=== PATIENT | female | born 1965 | race Caucasian/White ===

== ENCOUNTER 2017-03-08 10:49 | Emergency (ER) | payer SELFPAY ==
[~2017-03-08 10:49] MED LIST: IBUP-232 PO; PROVENTIL HFA INH; VENTAER INH
[2017-03-08 10:51] VITALS: BP 163/78; PULSE 80; RESP 16; TEMP 98.6; O2SAT 96
--- NOTE | 2017-03-08 11:02 | PD ---
HPI . right buttocks abscess x 5 days Chief Complaint: Skin Problem Time Seen by Provider: 10:56 Travel History International Travel<30 days: No Contact w/Intl Traveler<30days: No Traveled to known affect area: No History of Present Illness HPI 51- yr old female here with c/o right buttocks swelling that started about one week ago. She reports that the swelling is getting worse, and feels as if it is pulsating. She reports difficulty with urination due to the pain of the swelling on her buttocks. She reports her pain is a 9/10. The patient is requesting that the swelling be incised and drained. She tells me her significant other has similar issues. She is requesting cheap of free meds because she is "poor." She denies any fever, chills or other symptoms. She has tried popping this herself at home and also tried warm baths. PFSH Past Medical History Asthma: Yes Cancer: Yes (cervical) Diminished Hearing: No Menopausal: Yes Past Surgical History Gynecologic Surgery: Yes (hyster) Hysterectomy: Yes Social History Alcohol Use: Yes (beer and wine on weekends) Tobacco Use: Yes (1/2 ppd) Substance Use: No Allergies-Medications (Allergen,Severity, Reaction): Coded Allergies: Iodinated Contrast- Oral and IV Dye (Unverified Allergy, Intermediate, Hives, 03/08/17) Reported Meds & Prescriptions Reported Meds & Active Scripts Active Bactrim DS (Sulfamethoxazole-Trimethoprim) 800-160 Mg Tab 1 Tab PO BID Review of Systems General / Constitutional: No: Fever, Chills, Weight Gain, Weight Loss, Other Eyes: No: Diploplia, Blurred Vision, Photophobia, Drainage, Redness, Foreign Body Sensation, Pain, Tearing, Blind Spots, Visual changes, Blindness, Other HENT: No: Headaches, Vertigo, Lightheadedness, Sore Throat, Rhinitis, Rhinorrhea, Congestion, Nosebleed, Neck Stiffness, Neck Pain, Masses, Gingival Bleeding, Dental Difficulties, Ear Discharge, Earache, Other Cardiovascular: No: Chest Pain or Discomfort, Palpitations, Irregular Rhythm, Tachycardia, Diaphoresis, Syncope, Dyspnea on exertion, Varicosities, Edema, Cyanosis, Varicosities, Phlebitis, Claudication, Other Respiratory: No: Cough, Shortness of Breath, Wheezing, Sneezing, Orthopnea, Hemoptysis, Stridor, Night Sweats, Pleuritic Pain, Other Gastrointestinal: No: Nausea, Vomiting, Diarrhea, Abdominal Pain, Hematemesis, Hematochezia, Constipation, Changes in Bowel Habits, Indigestion, Dysphagia, Loss of Appetite, Other Genitourinary: No: Urgency, Frequency, Dysuria, Nocturia, Hematuria, Decreased Urinary Output, Oliguria, Hesitancy, Dribbling, Incontinence, Pelvic Pain, Flank Pain, Dyspareunia, Discharge, Dysmenorrhea, Menorrhagia, Metorrhagia, Vaginal Bleeding, Other Musculoskeletal: No: Myalgias, Arthralgias, Limited ROM, Weakness, Cramping, Edema, Pain, Atrophy, Other Skin: Positive Other (Abscess to right buttock ), No Rash, No Itching, No Dryness, No Lumps, No Hives, No Change in Pigmentation, No Change in nails, No Alopecia, No Lesions, No Breast Lumps, No Breast Tenderness, No Breast Swelling Neurologic: No: Weakness, Dizziness, Syncope, Focal Abnormalities, Coordination Problem, Tremor, Ataxia, Headache, Change in Mentation, Slurred Speech, Paresthesia, Incontinence, Seizures, Sensory Disturbance, Other Psychiatric: No: Anxiety, Depression, Suicidal Ideations, Disorder of Thought, Mood Disorder, Substance Abuse, Homicidal Ideation, Other Endocrine: No: Heat Intolerance, Cold Intolerance, Polyuria, Polydipsia, Other Hematologic/Lymphatic: No: Easy Bruising, Lymph Node Enlargement, Other Physical Exam Narrative GENERAL: AAO x 3. NAD. SKIN: 5 cm abscess noted on right buttock, firm, but some fluctuance in the center with drainage already present. +++ surrounding erythema with zone of inflammation extending about 2 cm. Warm and dry. HEAD: Atraumatic. Normocephalic. EYES: Pupils equal and round. No scleral icterus. No injection or drainage. ENT: No nasal bleeding or discharge. Mucous membranes pink and moist. NECK: Trachea midline. No JVD. CARDIOVASCULAR: Regular rate and rhythm. RESPIRATORY: No accessory muscle use. Clear to auscultation. Breath sounds equal bilaterally. No wheezing, rales, or rhonchi. GASTROINTESTINAL: Abdomen soft, non-tender, nondistended. MUSCULOSKELETAL: Extremities without clubbing, cyanosis, or edema. No obvious deformities. NEUROLOGICAL: Awake and alert. No obvious cranial nerve deficits. Motor grossly within normal limits. Five out of 5 muscle strength in the arms and legs. Normal speech. PSYCHIATRIC: Appropriate mood and affect; insight and judgment normal. Data Data Last Documented VS Vital Signs Date Time Temp Pulse Resp B/P (MAP) Pulse Ox O2 Delivery O2 Flow Rate FiO2 03/08/17 10:51 98.6 80 16 163/78 (106) 96 Orders Orders Wound Culture And Gram Stain (03/08/17 11:07) Lidocaine 1% Inj (50 Ml) (Xylocaine 1% I (03/08/17 11:15) MDM Medical Decision Making Medical Screen Exam Complete: Yes Emergency Medical Condition: Yes Medical Record Reviewed: Yes Differential Diagnosis Abscess versus Cellulitis Narrative Course 51 yr old female here with an abscess to her right buttocks. She has given verbal consent to I&D. Procedure performed and patient tolerated without incident. She was given Rx for bactrim and told to follow up in the ED In 48 hours for wound recheck. We discussed the signs of worsening infection and when to return to the ED. Patient verbalized understanding of instructions, questions were answered, and thanked me for their care. I advised them if their condition worsens, please return to the nearest emergency room for further care. Procedures Procedure Narrative Patient consented to having incision and drainage performed on an abscess on her right buttock. The abscess was first cleaned with iodine. After the abscess was anesthetized using 10 mL of 1% Lidocaine. The abscess was then incised 1 cm and drained and a culture was obtained. Loculations were broken up. The wound was then cleaned again with iodine and packed. Abdominal pad was placed over the abscess and taped. Patient was instructed on proper wound care. Diagnosis Primary Impression: Abscess of buttock, right Patient Instructions: General Instructions Additional Instructions: Rest, hydrate. Do not change the dressing unless it becomes wet or soiled until wound recheck in 48 hours. You may bathe normally. Do not submerge the wound. Take the antibiotics as they are prescribed, even if your symptoms resolve during the course of treatment. Utilize [id number] pain medications, as described on the label, as needed. Return to the ED in 48 hours for packing removal and wound recheck. Follow-up with your primary care provider in next week. Return to the ED for any urgent or emergent medical condition. Please return to emergency department if your symptoms return or worsen. Follow up with your primary care provider. Take medications as prescribed. [place] for worsening signs of infection which include fever, increased redness , increased warmth, purulent drainage, increased swelling or streaking. If any of these develop, please go to the nearest emergency room. Med/Other Pt SpecificInfo: Prescription(s) given Scripts Sulfamethoxazole-Trimethoprim (Bactrim DS) 800-160 Mg Tab 1 TAB PO BID for Infection, #20 TAB 0 Refills Prov: Kashmir Blanton MD 03/08/17 Disposition: 01 DISCHARGE HOME Condition: Stable Cyndy Damico Mar 08, 2017 11:02
[2017-03-08] MEDS ORDERED: LIDOCAINE HCL 1% 50 ML VIAL INFIL ONE (11:15)
[2017-03-08] MEDS ORDERED: BACT800T5 PO (11:39)
== END 2017-03-08 12:07 | disposition home or self-care (01) ==
LOC: NEPD 10:49
DX: L02.31 Cutaneous abscess of buttock (principal); B95.62 Methicillin resistant Staphylococcus aureus infection as the cause of diseases classified elsewhere
CPT/HCPCS: 10060; 86403; 87070; 87186

== ENCOUNTER 2017-05-25 10:00 | Emergency (ER) | payer SELFPAY ==
[~2017-05-25] VITALS: Ht 162.6 cm; Wt 75.0 kg
[~2017-05-25 10:00] MED LIST changes: +BACT800T5 PO; -IBUP-232 PO; -PROVENTIL HFA INH; -VENTAER INH
[2017-05-25 10:03] VITALS: BP 174/89; PULSE 80; RESP 16; TEMP 98; O2SAT 96
--- NOTE | 2017-05-25 10:40 | PD ---
HPI Chief Complaint: Cold / Flu Symptoms Time Seen by Provider: 10:31 Travel History International Travel<30 days: No Contact w/Intl Traveler<30days: No Traveled to known affect area: No History of Present Illness HPI 52-year-old female presents to the emergency department for sinus pain with a productive cough for approximately one month. States that she has worsened over the last couple days which is why she presents here today. States that she does not have fever or chills but does complain of mild shortness of breath. Patient believes this is because she is a smoker. She also complains of a yellow and green productive cough, constant sinus headache, congestion. Patient denies chest pain or abdominal pain. Her sinus pain is constant, mainly the maxillary sinus region. The pain does not radiate. Denies otorrhea or rhinorrhea. She not tried any medication [id number]. PFSH Past Medical History Asthma: Yes Cancer: Yes (cervical) Diminished Hearing: No ?: Not Menopausal: Yes Past Surgical History Gynecologic Surgery: Yes (hyster) Hysterectomy: Yes Social History Alcohol Use: Yes (beer and wine on weekends) Tobacco Use: Yes (1/2 ppd) Substance Use: No Allergies-Medications (Allergen,Severity, Reaction): Coded Allergies: Iodinated Contrast- Oral and IV Dye (Unverified Allergy, Intermediate, Hives, 05/25/17) Reported Meds & Prescriptions Reported Meds & Active Scripts Active Ventolin Hfa 18 GM Inh (Albuterol Sulfate) 90 Mcg/Act Aer 2 Puff INH Q4-6H PRN Montelukast (Montelukast Sodium) 10 Mg Tab 10 Mg PO HS Cipro (Ciprofloxacin HCl) 500 Mg Tab 500 Mg PO BID 10 Days Medrol Dosepak (Methylprednisolone) 4 Mg Dspk 4 Mg PO DIRECTED Per Pharmacist direction Bactrim DS (Sulfamethoxazole-Trimethoprim) 800-160 Mg Tab 1 Tab PO BID Review of Systems Except as stated in HPI: all other systems reviewed are Neg Physical Exam Narrative GENERAL: Welldeveloped well nourished resting comfortably in bed SKIN: Focused skin assessment warm/dry. HEAD: Atraumatic. Normocephalic. EYES: Pupils equal and round. No scleral icterus. No injection or drainage. ENT: No nasal bleeding or discharge. Mucous membranes pink and moist. Pharynx: post nasal drip Sinus- TTP of maxillary sinuses and mildly on the frontal sinuses. NECK: Trachea midline. No JVD. CARDIOVASCULAR: Regular rate and rhythm. No murmur appreciated. RESPIRATORY: No accessory muscle use. Clear to auscultation. Breath sounds equal bilaterally. NEUROLOGICAL: Awake and alert. No obvious cranial nerve deficits. Motor grossly within normal limits. Normal speech. PSYCHIATRIC: Appropriate mood and affect; insight and judgment normal. Data Data Last Documented VS Vital Signs Date Time Temp Pulse Resp B/P (MAP) Pulse Ox O2 Delivery O2 Flow Rate FiO2 05/25/17 10:26 Room Air 05/25/17 10:03 98.0 80 16 174/89 (117) 96 Orders Orders Ed Discharge Order (05/25/17 10:47) [facility] Medical Decision Making Medical Screen Exam Complete: Yes Emergency Medical Condition: Yes Differential Diagnosis Acute sinusitis versus upper respiratory infection versus viral pharyngitis Narrative Course 52-year-old female presents to the emergency department for sinus pain with a productive cough for approximately one month. States that she has worsened over the last couple days which is why she presents here today. States that she does not have fever or chills but does complain of mild shortness of breath. Patient believes this is because she is a smoker. She also complains of a yellow and green productive cough, constant sinus headache, congestion. Patient denies chest pain or abdominal pain. Her sinus pain is constant, mainly the maxillary sinus region. The pain does not radiate. Denies otorrhea or rhinorrhea. She not tried any medication [id number]. Vital signs stable Physical exam consistent with sinusitis. Duration suggests bacterial origin so will will accordingly. Advised Nasal Saline, humidifiers. OTC nasal Congestant to relieve sinus pressure, claritin, cody, or zyrtec for allergy symptoms. Pt to return for worsening symptoms. Diagnosis Primary Impression: Sinusitis Qualified Codes: J01.00 - Acute maxillary sinusitis, unspecified Referrals: [facility] Additional Instructions: Use nasal saline spray 1-2 times daily Take all medications as prescribed If her symptoms persist or worsen return to the department Scripts Albuterol 18 GM Inh (Ventolin Hfa 18 GM Inh) 90 Mcg/Act Aer 2 PUFF INH Q4-6H Y for SHORTNESS OF BREATH, #1 INHALER 0 Refills Prov: Denny Terry MD 05/25/17 Montelukast (Montelukast) 10 Mg Tab 10 MG PO HS, #30 TAB 0 Refills Prov: Denny Terry MD 05/25/17 Ciprofloxacin (Cipro) 500 Mg Tab 500 MG PO BID for Infection for 10 Days, #20 TAB 0 Refills Prov: Denny Terry MD 05/25/17 Methylprednisolone Dosepak (Medrol Dosepak) 4 Mg Dspk 4 MG PO DIRECTED, #1 DSPK 0 Refills Per Pharmacist direction Prov: Denny Terry MD 05/25/17 Disposition: 01 DISCHARGE HOME Condition: Stable Jenny Reyes May 25, 2017 10:40
[2017-05-25] MEDS ORDERED: MEDR4PAK PO (10:42)
[2017-05-25] MEDS ORDERED: MONT10TA4 PO (10:42)
[2017-05-25] MEDS ORDERED: VENTAER INH (10:42)
[2017-05-25] MEDS ORDERED: CIPR-9 PO (10:42)
== END 2017-05-25 11:17 | disposition home or self-care (01) ==
LOC: NEPK 10:00
DX: J32.9 Chronic sinusitis, unspecified (principal); J45.909 Unspecified asthma, uncomplicated; F17.200 Nicotine dependence, unspecified, uncomplicated; Z79.899 Other long term (current) drug therapy
CPT/HCPCS: 99284

== ENCOUNTER 2017-08-25 09:30 | Emergency (ER) | payer SELFPAY ==
[~2017-08-25] VITALS: Ht 162.6 cm; Wt 85.0 kg
[~2017-08-25 09:30] MED LIST changes: +CIPR-9 PO; +MEDR4PAK PO; +MONT10TA4 PO; +VENTAER INH
[2017-08-25 09:32] VITALS: BP 190/88; PULSE 77; RESP 14; TEMP 98.6; O2SAT 97
[2017-08-25] MEDS ORDERED: ALBUAER3 INH (10:13)
[2017-08-25] MEDS ORDERED: AUGM875T3 PO (10:13)
[2017-08-25] MEDS ORDERED: PRED20 PO (10:13)
--- NOTE | 2017-08-25 10:30 | PD ---
HPI Chief Complaint: Cold / Flu Symptoms Time Seen by Provider: 10:09 Travel History International Travel<30 days: No Contact w/Intl Traveler<30days: No Traveled to known affect area: No History of Present Illness HPI 52-year-old female with history of tobacco use presents for evaluation. She reports that she has a chronic cough for the past few weeks the cough is been worse. The cough is occasionally productive of sputum. Denies any fevers or chills. She is also had a toothache for the past several days. Pain is a throbbing pain was constant, localized to the right mandibular first molar. She has a history of asthma according to chart review. She has no other complaints at this time. [facility] Past Medical History Asthma: Yes Cancer: Yes (cervical) Diminished Hearing: No Respiratory: Yes (ASTHMA) ?: Not Menopausal: Yes Past Surgical History Gynecologic Surgery: Yes (hyster) Hysterectomy: Yes Social History Alcohol Use: Yes (beer and wine on weekends) Tobacco Use: Yes (1/2 ppd) Substance Use: No Allergies-Medications (Allergen,Severity, Reaction): Coded Allergies: Iodinated Contrast- Oral and IV Dye (Unverified Allergy, Intermediate, Hives, 05/25/17) Reported Meds & Prescriptions Reported Meds & Active Scripts Active Augmentin (Amoxicillin-Clavulanate) 875-125 Mg Tab 1 Tab PO BID 10 Days Proair Hfa 8.5 GM Inh (Albuterol Sulfate) 90 Mcg/Act Aer 2 Puff INH Q4-6H PRN 108 mcg/actuation Prednisone 20 Mg Tab 20 Mg PO BID 5 Days Ventolin Hfa 18 GM Inh (Albuterol Sulfate) 90 Mcg/Act Aer 2 Puff INH Q4-6H PRN Review of Systems Except as stated in HPI: all other systems reviewed are Neg Physical Exam Narrative GENERAL: Well-developed well-nourished female in no acute distress SKIN: Warm and dry. HEAD: Atraumatic. Normocephalic. EYES: Pupils equal and round. No scleral icterus. No injection or drainage. ENT: No nasal bleeding or discharge. Mucous membranes pink and moist. The right mandibular first molar is decayed and tender to palpation. NECK: Trachea midline. No JVD. No lymphadenopathy. CARDIOVASCULAR: Regular rate and rhythm. No murmur appreciated. RESPIRATORY: No accessory muscle use. Wheezing noted bilaterally. No crackles. GASTROINTESTINAL: Abdomen soft, non-tender, nondistended. Hepatic and splenic margins not palpable. Data Data Last Documented VS Vital Signs Date Time Temp Pulse Resp B/P (MAP) Pulse Ox O2 Delivery O2 Flow Rate FiO2 08/25/17 09:32 98.6 77 14 190/88 (122) 97 MDM Medical Decision Making Medical Screen Exam Complete: Yes Emergency Medical Condition: Yes Medical Record Reviewed: Yes Differential Diagnosis COPD, bronchitis, asthma exacerbation, reactive airway disease Narrative Course Patient will be treated with Augmentin, albuterol inhaler, prednisone. Diagnosis Primary Impression: Bronchitis Additional Impression: Dental caries Additional Instructions: Medication as prescribed. Avoid tobacco products. Follow-up with primary care physician. Return for any emergent medical conditions. Med/Other Pt SpecificInfo: Prescription(s) given Scripts Amoxicillin-Clavulanate (Augmentin) 875-125 Mg Tab 1 TAB PO BID for Infection for 10 Days, #20 TAB 0 Refills Prov: Tammie Aponte MD 08/25/17 Albuterol 8.5 GM Inh (Proair Hfa 8.5 GM Inh) 90 Mcg/Act Aer 2 PUFF INH Q4-6H Y for SHORTNESS OF BREATH, #1 INHALER 0 Refills 108 mcg/actuation Prov: Tammie Aponte MD 08/25/17 Prednisone (Prednisone) 20 Mg Tab 20 MG PO BID for 5 Days, #10 TAB 0 Refills Prov: Tammie Aponte MD 08/25/17 Disposition: 01 DISCHARGE HOME Condition: Stable Konrad Webster Aug 25, 2017 10:30
== END 2017-08-25 10:55 | disposition home or self-care (01) ==
LOC: NEPK 09:30
DX: J40 Bronchitis, not specified as acute or chronic (principal); K02.9 Dental caries, unspecified; J45.909 Unspecified asthma, uncomplicated; F17.200 Nicotine dependence, unspecified, uncomplicated
CPT/HCPCS: 99283